=== PATIENT | female | born 1995 | race African-American/Black ===

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

== ENCOUNTER 2017-07-17 14:47 | Emergency (ER) | payer OTHER ==
[~2017-07-17] VITALS: Ht 154.9 cm; Wt 89.0 kg
[~2017-07-17 14:47] MED LIST changes: +ZOFR4TAB PO
[2017-07-17 14:48] VITALS: BP 138/77; PULSE 97; RESP 16; TEMP 99.2; O2SAT 98
== END 2017-07-17 15:40 | disposition left against medical advice (07) ==
LOC: NETRI 14:47
DX: J00 Acute nasopharyngitis [common cold] (principal); Z53.21 Procedure and treatment not carried out due to patient leaving prior to being seen by health care provider
CPT/HCPCS: 99281

== ENCOUNTER 2017-08-12 16:12 | Emergency (ER) | payer OTHER ==
[~2017-08-12] VITALS: Ht 157.5 cm; Wt 90.0 kg
[2017-08-12 16:14] VITALS: BP 133/77; PULSE 89; RESP 18; TEMP 98.1; O2SAT 99
[2017-08-13] MEDS ORDERED: METR-1 PO (06:38)
== END 2017-08-12 17:02 | disposition left against medical advice (07) ==
LOC: NED 16:12
DX: R10.9 Unspecified abdominal pain (principal); Z53.21 Procedure and treatment not carried out due to patient leaving prior to being seen by health care provider
CPT/HCPCS: 99281

== ENCOUNTER 2017-08-13 05:28 | Emergency (ER) | payer OTHER ==
[~2017-08-13] VITALS: Ht 157.5 cm; Wt 93.0 kg
[2017-08-13 05:29] VITALS: BP 123/77; PULSE 77; RESP 14; TEMP 98.4; O2SAT 100
--- NOTE | 2017-08-13 06:26 | PD ---
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 Patient states she has had a fair amount of blood and discharge from her vagina over the past few days, she is sexually active, she has never had a pelvic exam before. Denies any fevers abdominal pain nausea vomiting or diarrhea, states symptoms are gradually worsening, she has not noticed any swelling just the discharge. She relates it to being like an abscess because she has had abscesses drained before and states the discharge color and consistency is similar. PFSH Past Medical History Medical History: Denies Significant Hx Hx Anticoagulant Therapy: No Cardiovascular Problems: No Chemotherapy: No Cerebrovascular Accident: No Developmental Delay: No Diabetes: No Diminished Hearing: No Hiatal Hernia: Yes (SURGERY AT ) Respiratory: No Immunizations Current: Yes Tetanus Vaccination: < 5 Years Influenza Vaccination: No ?: Not LMP: 07/31/17 : 0 Past Surgical History Surgical History: No Previous Surgery Abdominal Surgery: Yes (HIATAL HERNIA REPAIR) Other Surgery: Yes (breast reduction) Social History Alcohol Use: No Tobacco Use: No Substance Use: No Allergies-Medications (Allergen,Severity, Reaction): Coded Allergies: No Known Allergies (Verified Allergy, Unknown, 08/13/17) Reported Meds & Prescriptions Reported Meds & Active Scripts Active Flagyl (Metronidazole) 500 Mg Tab 500 Mg PO BID 7 Days Review of Systems Except as stated in HPI: all other systems reviewed are Neg Physical Exam Narrative GENERAL: Well-developed well-nourished in no obvious distress SKIN: Focused skin assessment warm/dry. HEAD: Atraumatic. Normocephalic. EYES: Pupils equal and round. No scleral icterus. No injection or drainage. ENT: No nasal bleeding or discharge. Mucous membranes pink and moist. NECK: Trachea midline. No JVD. CARDIOVASCULAR: Regular rate and rhythm. No murmur appreciated. RESPIRATORY: No accessory muscle use. Clear to auscultation. Breath sounds equal bilaterally. GASTROINTESTINAL: Abdomen soft, non-tender, nondistended. Hepatic and splenic margins not palpable. GENITOURINARY: Exam performed with female nurse wind energy mechanic present at all times, significant mucopurulent discharge from the cervix, no cervical motion tenderness no bimanual tenderness. No lesions seen internally or externally appeared MUSCULOSKELETAL: No obvious deformities. No clubbing. No cyanosis. No edema. NEUROLOGICAL: Awake and alert. No obvious cranial nerve deficits. Motor grossly within normal limits. Normal speech. PSYCHIATRIC: Appropriate mood and affect; insight and judgment normal. Data Data Last Documented VS Vital Signs Date Time Temp Pulse Resp B/P (MAP) Pulse Ox O2 Delivery O2 Flow Rate FiO2 08/13/17 07:16 08/13/17 05:29 98.4 77 14 100 Room Air Orders Orders Ed Urine Pregnancytest Poc (08/13/17 05:37) Urinalysis - C+S If Indicated (08/13/17 05:37) Gc And Chlamydia Pcr (08/13/17 05:37) Wet Prep Profile (08/13/17 05:37) Ceftriaxone Inj (Rocephin Inj) (08/13/17 06:30) Azithromycin (Zithromax) (08/13/17 06:30) Metronidazole (Flagyl) (08/13/17 06:30) Ondansetron Odt (Zofran Odt) (08/13/17 06:30) Ed Discharge Order (08/13/17 06:26) Lidocaine Pf 1% Inj (Xylocaine-Mpf 1% In (08/13/17 07:00) Urine Culture (08/13/17 06:10) Labs Laboratory Tests Test 08/13/17 06:10 08/13/17 06:20 Urine Color YELLOW Urine Turbidity CLOUDY Urine pH 6.5 Urine Specific [place] 1.022 Urine Protein 100 mg/dL Urine Glucose (UA) NEG mg/dL Urine Ketones 10 mg/dL Urine Occult Blood MOD Urine Nitrite NEG Urine Bilirubin NEG Urine Urobilinogen LESS THAN 2.0 MG/DL Urine Leukocyte Esterase LARGE Urine RBC 57 /hpf Urine WBC /hpf Urine WBC Clumps MOD Urine Squamous Epithelial Cells 50 /hpf Urine Bacteria MOD /hpf Urine Mucus FEW /lpf Urine Trichomonas RARE Microscopic Urinalysis Comment CULTURE INDICATED Clue Cells (Wet Prep) NONE SEEN Vaginal Trichomonas (Wet Prep) PRESENT Vaginal Yeast (Wet Prep) NONE SEEN Chlamydia trachomatis DNA (PCR) NOT DETECTED Neisseria gonorrhoeae DNA (PCR) NOT DETECTED MDM Medical Decision Making Medical Screen Exam Complete: Yes Emergency Medical Condition: Yes Differential Diagnosis Cervicitis, PID, bacterial vaginitis per Narrative Course Patient room to the emergency department, unprotected sexual activity, copious discharge consistent with cervicitis, will be covered for gonorrhea chlamydia and trichomonas, will cover for bacterial vaginitis as well, discussed follow- up with the healthcare department for testing for hepatitis HIV and syphilis, discussed testing and treatment of partners, discussed barrier contraception. She is stable for discharge. Diagnosis Primary Impression: Cervicitis Additional Instructions: Follow-up for the health department for testing for HIV hepatitis and syphilis, recommend having your partners tested and treated, always use condoms. Med/Other Pt SpecificInfo: Prescription(s) given Scripts Metronidazole (Flagyl) 500 Mg Tab 500 MG PO BID for Infection for 7 Days, #14 TAB 0 Refills Prov: Gold Peterson MD 08/13/17 Disposition: 01 DISCHARGE HOME Condition: Stable Gold Peterson MD Aug 13, 2017 06:26
[2017-08-13] MEDS ORDERED: metroNIDAZOLE 500 MG TAB PO ONE (06:30)
[2017-08-13] MEDS ORDERED: cefTRIAXone 250 MG VIAL IM ONE (06:30)
[2017-08-13] MEDS ORDERED: ONDANSETRON ODT 4 MG TAB PO ONE (06:30)
[2017-08-13] MEDS ORDERED: AZITHROMYCIN 250 MG TAB PO ONE (06:30)
[2017-08-13] MEDS ORDERED: METR-1 PO (06:38)
[2017-08-13] MEDS ORDERED: LIDOCAINE HCL 1% 50 ML VIAL XX ONE (06:45)
[2017-08-13 06:48] LABS: BACTERIA, URINE MOD /hpf; BILIRUBIN, URINE NEG (NEG); BLOOD, URINE MOD (NEG); GLUCOSE,URINE NEG (NEG); KETONE, URINE 10 mg/dL (NEG); MUCUS URINE FEW /lpf (OCC); NITRITE,URINE NEG (NEG); PH, URINE 6.5 (5.0-8.5); SQUAMOUS EPITHELIAL CELL URINE 50 /hpf (0-5); TRICHOMONAS, URINE RARE; URINE COLOR YELLOW (YELLW/STRAW); URINE LEUKOCYTE ESTERASE LARGE (NEG); WHITE BLOOD CELL CLUMPS MOD
[2017-08-13] MEDS ORDERED: LIDOCAINE HCL 1% PF 5 ML AMPULE OTHER ONE (07:00)
== END 2017-08-13 07:17 | disposition home or self-care (01) ==
LOC: NEPE 05:28
DX: N72 Inflammatory disease of cervix uteri (principal); B96.20 Unspecified Escherichia coli [E. coli] as the cause of diseases classified elsewhere
CPT/HCPCS: 81001; 87077; 87086; 87186; 87210; 87491; 87591; 96372; 99284; J0696

== ENCOUNTER 2017-10-22 07:51 | Emergency (ER) | payer OTHER ==
[~2017-10-22] VITALS: Ht 157.5 cm; Wt 92.0 kg
[~2017-10-22 07:51] MED LIST changes: -BACT800T5 PO; +METR-1 PO; -METR0.7528 VAGINAL; -ZOFR4TAB PO
[2017-10-22 07:54] VITALS: PULSE 84; RESP 20; TEMP 99.1; O2SAT 99
[2017-10-22 08:10] VITALS: BP 125/71; PULSE 92; RESP 22; O2SAT 98
[2017-10-22] MEDS ORDERED: ACETAMINOPHEN 325 MG TAB PO ONE (08:15)
[2017-10-22] MEDS ORDERED: IBUPROFEN 600 MG TAB PO ONE (08:15)
[2017-10-22] MEDS ORDERED: AMOX875T PO (08:17)
[2017-10-22] MEDS ORDERED: FLUT1SPR5 EACH NARE (08:17)
--- NOTE | 2017-10-22 08:23 | PD ---
HPI Chief Complaint: Cold / Flu Symptoms Time Seen by Provider: 08:13 Travel History International Travel<30 days: No Contact w/Intl Traveler<30days: No Traveled to known affect area: No History of Present Illness HPI 22-year-old female presents emergency department with upper respiratory symptoms including headache, sinus congestion, postnasal drip, sore throat, ear pain, cough, and generalized malaise. Patient denies significant shortness of breath or wheezing. She has decreased appetite but no nausea or vomiting. No diarrhea. No abdominal pain. Headache pain is 8 out of 10. Patient has no known drug allergies. PFSH Past Medical History Hx Anticoagulant Therapy: No Cardiovascular Problems: No Chemotherapy: No Cerebrovascular Accident: No Developmental Delay: No Diabetes: No Diminished Hearing: No Hiatal Hernia: Yes (SURGERY AT ) Respiratory: No Immunizations Current: Yes ?: Not LMP: OCTOBER 20, 2017 : 0 Past Surgical History Abdominal Surgery: Yes (HIATAL HERNIA REPAIR) Other Surgery: Yes (breast reduction) Social History Alcohol Use: No Tobacco Use: No Substance Use: No Allergies-Medications (Allergen,Severity, Reaction): Coded Allergies: No Known Allergies (Verified Allergy, Unknown, 10/22/17) Reported Meds & Prescriptions Reported Meds & Active Scripts Active Flonase Nasal [place] (Fluticasone Nasal [place]) 50 Mcg/Act [place] 100 Mcg EACH NARE BID Amoxicillin 875 Mg Tab 875 Mg PO BID 10 Days Review of Systems Except as stated in HPI: all other systems reviewed are Neg General / Constitutional: Positive: Chills, No: Fever Eyes: No: Visual changes HENT: Positive: Headaches, Sore Throat, Rhinitis, Rhinorrhea, Congestion, Earache, No: Vertigo, Lightheadedness, Nosebleed, Neck Stiffness, Neck Pain, Masses, Gingival Bleeding, Dental Difficulties, Ear Discharge Cardiovascular: No: Chest Pain or Discomfort Respiratory: Positive: Cough, No: Shortness of Breath Gastrointestinal: Positive: Other, No: Nausea, Vomiting, Diarrhea, Abdominal Pain Genitourinary: No: Dysuria Musculoskeletal: No: Pain Skin: No Rash Neurologic: No: Weakness Psychiatric: No: Depression Endocrine: No: Polydipsia Hematologic/Lymphatic: No: Easy Bruising Physical Exam Narrative GENERAL: The patient appears ill but not septic SKIN: Warm and dry. Normal color. Normal turgor. HEAD: Atraumatic. Normocephalic. EYES: Pupils equal and round. No scleral icterus. No injection or drainage. ENT: No nasal bleeding or discharge. Mucous membranes pink and moist. Patient has moderate sinus tenderness in both frontal and maxillary sinuses. TMs are dull bilaterally with no injection. Posterior pharynx appears irritated with cobblestoning, mild erythema, and postnasal drip noted. Airways patent. Lymphadenopathy is minimal. NECK: Trachea midline. Supple nontender. CARDIOVASCULAR: Regular rate and rhythm. RESPIRATORY: No accessory muscle use. Clear to auscultation. Breath sounds equal bilaterally. GASTROINTESTINAL: Abdomen soft, non-tender, nondistended. Hepatic and splenic margins not palpable. MUSCULOSKELETAL: Extremities without clubbing, cyanosis, or edema. No obvious deformities. NEUROLOGICAL: Awake and alert. No obvious cranial nerve deficits. Motor grossly within normal limits. Five out of 5 muscle strength in the arms and legs. Normal speech. PSYCHIATRIC: Appropriate mood and affect; insight and judgment normal. Data Data Last Documented VS Vital Signs Date Time Temp Pulse Resp B/P (MAP) Pulse Ox O2 Delivery O2 Flow Rate FiO2 10/22/17 08:10 92 22 125/71 (89) 98 Room Air 10/22/17 07:54 99.1 Orders Orders Ibuprofen (Motrin) (10/22/17 08:15) Acetaminophen (Tylenol) (10/22/17 08:15) Amoxicillin (Trimox) (10/22/17 08:30) [facility] Medical Decision Making Medical Screen Exam Complete: Yes Emergency Medical Condition: Yes Differential Diagnosis Upper respiratory infection. Sinusitis. Postnasal drip. Narrative Course Patient is given ibuprofen 600 mg p.o. now as well as 650 mg acetaminophen p.o. now. Patient is given amoxicillin 875 mg p.o. now. Patient is continued on amoxicillin 875 twice daily 10 days. Patient is given Flonase nasal spray 2 sprays each nostril daily. Work note is given. Diagnosis Primary Impression: Acute sinusitis, unspecified Qualified Codes: J01.40 - Acute pansinusitis, unspecified Patient Instructions: General Instructions, Sinusitis (ED) Departure Forms: Work Release Enter return to work date: Oct 24, 2017 Additional Instructions: Patient is given ibuprofen 600 mg p.o. now as well as 650 mg acetaminophen p.o. now. Patient is given amoxicillin 875 mg p.o. now. Patient is continued on amoxicillin 875 twice daily 10 days. Patient is given Flonase nasal spray 2 sprays each nostril daily. Work note is given. Med/Other Pt SpecificInfo: Prescription(s) given Scripts Fluticasone Nasal [place] (Flonase Nasal [place]) 50 Mcg/Act [place] 100 MCG EACH NARE BID for Allergies, #1 BOTTLE 0 Refills Prov: Pavan Tierney MD 10/22/17 Amoxicillin (Amoxicillin) 875 Mg Tab 875 MG PO BID for Infection for 10 Days, #20 TAB 0 Refills Prov: Pavan Tierney MD 10/22/17 Disposition: 01 DISCHARGE HOME Condition: Stable Dennys Jj Oct 22, 2017 08:23
[2017-10-22] MEDS ORDERED: AMOXICILLIN 875 MG TAB PO ONE (08:30)
== END 2017-10-22 09:09 | disposition home or self-care (01) ==
LOC: NEPD 07:51
DX: J01.40 Acute pansinusitis, unspecified (principal); H92.09 Otalgia, unspecified ear; J02.9 Acute pharyngitis, unspecified; R51 Headache; Z88.0 Allergy status to penicillin
CPT/HCPCS: 99283

== ENCOUNTER 2017-12-16 21:10 | Emergency (ER) | payer SELFPAY ==
[~2017-12-16] VITALS: Ht 167.6 cm; Wt 81.0 kg
[~2017-12-16 21:10] MED LIST changes: +AMOX875T PO; +FLUT1SPR5 EACH NARE; -METR-1 PO
[2017-12-16 21:15] VITALS: BP 128/68; PULSE 79; RESP 16; TEMP 99.1; O2SAT 100
[2017-12-16] MEDS ORDERED: DICL75TA PO (22:14)
[2017-12-16] MEDS ORDERED: CLEO300C2 PO (22:14)
[2017-12-16] MEDS ORDERED: ACETAMINOPHEN/HYDROcodone 325 MG/5 MG TAB PO ONE (22:15)
[2017-12-16] MEDS ORDERED: CLINDAMYCIN 150 MG CAP PO ONE (22:15)
--- NOTE | 2017-12-16 22:21 | PD ---
HPI Chief Complaint: Lump, Cyst, Hernia Time Seen by Provider: 22:08 Travel History International Travel<30 days: No Contact w/Intl Traveler<30days: No Traveled to known affect area: No History of Present Illness HPI 22-year-old black female presents emergency department we will complains of a tender area of her buttocks which she has had in the past. The patient states that she had incision and drainage of a pilonidal cyst. No drainage. She denies any fever chills. No nausea vomiting. Symptoms have been present now for the past 2 days. PFSH Past Medical History Hx Anticoagulant Therapy: No Cardiovascular Problems: No Chemotherapy: No Cerebrovascular Accident: No Developmental Delay: No Diabetes: No Diminished Hearing: No Hiatal Hernia: Yes (SURGERY AT ) Respiratory: No Immunizations Current: Yes Tetanus Vaccination: Unknown Influenza Vaccination: No ?: Not LMP: 12/15/2017 : 0 Past Surgical History Abdominal Surgery: Yes (HIATAL HERNIA REPAIR) Other Surgery: Yes (breast reduction) Social History Alcohol Use: No Tobacco Use: No Substance Use: No Allergies-Medications (Allergen,Severity, Reaction): Coded Allergies: No Known Allergies (Verified Allergy, Unknown, 12/16/17) Reported Meds & Prescriptions Reported Meds & Active Scripts Active Diclofenac Sodium DR (Diclofenac Sodium) 75 Mg Tabdr 75 Mg PO BID Cleocin (Clindamycin HCl) 300 Mg Cap 300 Mg PO Q6H 7 Days Review of Systems General / Constitutional: No: Fever Eyes: No: Visual changes HENT: No: Headaches Cardiovascular: No: Chest Pain or Discomfort Respiratory: No: Shortness of Breath Gastrointestinal: No: Abdominal Pain Genitourinary: No: Dysuria Musculoskeletal: No: Pain Skin: Positive Lumps, No Rash Neurologic: No: Weakness Psychiatric: No: Depression Endocrine: No: Polydipsia Hematologic/Lymphatic: No: Easy Bruising Physical Exam Narrative GENERAL: This is a well-nourished, well-developed patient, in no apparent distress. The patient was examined in the presence of the nurse. SKIN: There is a1.5 x 1.5 cm area of induration in the gluteal cleft. There is no fluctuance or pointing. It is tender to touch. She has had prior incision and drainage in the same area. HEAD: Atraumatic. Normocephalic. EYES: PERRL, EOMI, no discharge or injection. No scleral icterus. EARS: Clear NOSE: Nasal turbinates appear normal. THROAT: Mucosa pink and moist. Airway patent. NECK: Trachea midline. supple, moves head freely. LUNGS: Clear to auscultation. CV: Regular in rhythm. ABDOMEN: Soft nontender. EXT: No clubbing cyanosis or edema. Data Data Last Documented VS Vital Signs Date Time Temp Pulse Resp B/P (MAP) Pulse Ox O2 Delivery O2 Flow Rate FiO2 12/16/17 21:15 99.1 79 16 128/68 (88) 100 Orders Orders Clindamycin (Cleocin) (12/16/17 22:15) Acetamin-Hydrocod 325-5 Mg ([place] 5-325 (12/16/17 22:15) Ed Discharge Order (12/16/17 22:16) MDM Medical Decision Making Medical Screen Exam Complete: Yes Emergency Medical Condition: Yes Medical Record Reviewed: Yes Differential Diagnosis MDM: High Differential diagnoses: Abscess, folliculitis, cellulitis, lymphangitis, abrasion, contact dermatitis Narrative Course Patient has an infected pilonidal cyst at this point incision and drainage is not indicated. Patient is advised to take your antibiotics and follow-up with surgery. She will be referred to [facility] for recheck. Diagnosis Primary Impression: Pilonidal cyst Patient Instructions: General Instructions Additional Instructions: Rest. Elevation. keep clean and dry. Warm compresses. Clindamycin and diclofenac. Follow-up with [facility] in 2-3 days. Follow-up with a surgeon for definitive care. Return to the ER for any problems. Med/Other Pt SpecificInfo: Prescription(s) given Scripts Diclofenac Sodium (Diclofenac Sodium DR) 75 Mg Tabdr 75 MG PO BID, #14 TAB 0 Refills Prov: Hans Jauregui MD 12/16/17 Clindamycin (Cleocin) 300 Mg Cap 300 MG PO Q6H for Infection for 7 Days, #28 CAP 0 Refills Prov: Hans Jauregui MD 12/16/17 Disposition: 01 DISCHARGE HOME Condition: Stable Miguel Barnhart Dec 16, 2017 22:21
== END 2017-12-16 22:36 | disposition home or self-care (01) ==
LOC: NEPD 21:10
DX: L05.91 Pilonidal cyst without abscess (principal)
CPT/HCPCS: 99283

== ENCOUNTER 2017-12-20 14:45 | Emergency (ER) | payer SELFPAY ==
[~2017-12-20] VITALS: Ht 157.5 cm; Wt 85.0 kg
[~2017-12-20 14:45] MED LIST changes: -AMOX875T PO; +CLEO300C2 PO; +DICL75TA PO; -FLUT1SPR5 EACH NARE
[2017-12-20 15:00] VITALS: BP 108/66; PULSE 88; RESP 16; TEMP 98.8; O2SAT 100
[2017-12-20] MEDS ORDERED: ACETAMINOPHEN/HYDROcodone 325 MG/5 MG TAB PO ONE (18:45)
--- NOTE | 2017-12-20 19:28 | PD ---
HPI Chief Complaint: Skin Problem Time Seen by Provider: 18:32 Travel History International Travel<30 days: No Contact w/Intl Traveler<30days: No Traveled to known affect area: No History of Present Illness HPI Patient is a 22 year old female who comes in complaining of a painful cyst to her buttocks. She says she had a cyst drained there in the past, but was not having any problems with it until 3-4 days ago. She says this is when it started hurting again. She came here and was given a course of antibiotics. She says that she has been taking the antibiotics as prescribed, but the pain seems to have become worse. She denies any fever or chills. She denies any leakage of fluid from the area. She has not taken anything for the pain. Severity is mild to moderate. PFSH Past Medical History Hx Anticoagulant Therapy: No Cardiovascular Problems: No Chemotherapy: No Cerebrovascular Accident: No Developmental Delay: No Diabetes: No Diminished Hearing: No Hiatal Hernia: Yes (SURGERY AT ) Respiratory: No Immunizations Current: Yes ?: Not : 0 Past Surgical History Abdominal Surgery: Yes (HIATAL HERNIA REPAIR) Other Surgery: Yes (breast reduction) Social History Alcohol Use: No Tobacco Use: No Substance Use: No Allergies-Medications (Allergen,Severity, Reaction): Coded Allergies: No Known Allergies (Verified Allergy, Unknown, 12/20/17) Reported Meds & Prescriptions Reported Meds & Active Scripts Active Diclofenac Sodium DR (Diclofenac Sodium) 75 Mg Tabdr 75 Mg PO BID Cleocin (Clindamycin HCl) 300 Mg Cap 300 Mg PO Q6H 7 Days Review of Systems Except as stated in HPI: all other systems reviewed are Neg General / Constitutional: No: Fever, Chills Eyes: No: Blurred Vision HENT: No: Headaches, Lightheadedness Cardiovascular: No: Chest Pain or Discomfort Respiratory: No: Shortness of Breath Gastrointestinal: No: Nausea, Vomiting, Abdominal Pain Skin: Positive Lesions, No Rash Neurologic: No: Weakness, Dizziness Physical Exam Narrative GENERAL: Awake and alert, in no acute distress. SKIN: Focused skin assessment warm/dry. Small cyst above left buttocks, with large area of induration. No erythema or warmth. No leakage of fluids. HEAD: Atraumatic. Normocephalic. EYES: Pupils equal and round. No scleral icterus. No injection or drainage. ENT: No nasal bleeding or discharge. Mucous membranes pink and moist. NECK: Trachea midline. No JVD. CARDIOVASCULAR: Regular rate and rhythm. No murmur appreciated. RESPIRATORY: No accessory muscle use. Clear to auscultation. Breath sounds equal bilaterally. MUSCULOSKELETAL: No obvious deformities. No clubbing. No cyanosis. No edema. NEUROLOGICAL: Awake and alert. No obvious cranial nerve deficits. Motor grossly within normal limits. Normal speech. PSYCHIATRIC: Appropriate mood and affect; insight and judgment normal. Data Data Last Documented VS Vital Signs Date Time Temp Pulse Resp B/P (MAP) Pulse Ox O2 Delivery O2 Flow Rate FiO2 12/20/17 15:00 98.8 88 16 108/66 (80) 100 Orders Orders Iv Access Insert/Monitor (12/20/17 18:37) Complete Blood Count With Diff (12/20/17 18:37) Comprehensive Metabolic Panel (12/20/17 18:37) Ct Pelvis W Iv Contrast(Rout) (12/20/17 ) Acetamin-Hydrocod 325-5 Mg ([place] 5-325 (12/20/17 18:45) Ed Urine Pregnancytest Poc (12/20/17 18:37) Iohexol 350 Inj (Omnipaque 350 Inj) (12/20/17 19:29) Labs Laboratory Tests Test 12/20/17 19:15 White Blood Count 10.7 TH/MM3 Red Blood Count 5.02 MIL/MM3 Hemoglobin 13.2 GM/DL Hematocrit 40.0 % Mean Corpuscular Volume 79.7 FL Mean Corpuscular Hemoglobin 26.3 PG Mean Corpuscular Hemoglobin Concent 33.0 % Red Cell Distribution Width 14.7 % Platelet Count 281 TH/MM3 Mean Platelet Volume 10.2 FL Neutrophils (%) (Auto) 57.9 % Lymphocytes (%) (Auto) 30.9 % Monocytes (%) (Auto) 8.3 % Eosinophils (%) (Auto) 2.6 % Basophils (%) (Auto) 0.3 % Neutrophils # (Auto) 6.2 TH/MM3 Lymphocytes # (Auto) 3.3 TH/MM3 Monocytes # (Auto) 0.9 TH/MM3 Eosinophils # (Auto) 0.3 TH/MM3 Basophils # (Auto) 0.0 TH/MM3 CBC Comment DIFF FINAL Differential Comment MDM Medical Decision Making Medical Screen Exam Complete: Yes Emergency Medical Condition: Yes Medical Record Reviewed: Yes Differential Diagnosis abscess vs cellulitis vs cyst Narrative Course Patient is a 22 year old female who comes in complaining of a painful cyst above her left buttocks. Exam shows a small area of fluctuance. IV established , labs sent. Labs show no acute abnormalities. CT shows an abscess. Last [address] 12/20/17 0000 Signed Impressions: CONCLUSION: Focal subcutaneous buttock abscess. Abscess drained by ASA Barnhart. Advised to continue her antibiotics. Advised to keep the area clean and dry. Advised to return to the ED as needed for any worsening symptoms. Diagnosis Primary Impression: Abscess Referrals: [facility] call for appointment Patient Instructions: Abscess (ED), General Instructions Additional Instructions: Continue your antibiotics. Keep the area clean and dry. Follow up with your doctor. Return to the ED as needed for any worsening symptoms. Disposition: 01 DISCHARGE HOME Condition: Stable Sharlene Rand MD Dec 20, 2017 19:28
[2017-12-20] MEDS ORDERED: IOHEXOL 350 MG/ML 10 ML VIAL (for RAD DIAG) IVCONTRAST ONE (19:29)
--- NOTE | 2017-12-20 19:46 | RADRPT ---
EXAM DATE: 12/20/2017 7:33 PM EDT AGE/SEX: 22 years / Female INDICATIONS: Buttock abscess. Possible fistula. CLINICAL DATA: This is the patient's initial encounter. Patient reports that signs and symptoms have been present for 1 week and indicates a pain score of 10/10. MEDICAL/SURGICAL HISTORY: Hiatal hernia. . RADIATION DOSE: 15.64 CTDI (mGy) COMPARISON: No prior exams available for comparison. TECHNIQUE: Multiple contiguous helical axial images were obtained through pelvis following bolus inf usion of 95 ml Omnipaque 350 (iohexol) nonionic water-soluble contrast as a single exam dose. Imag es were obtained using multiple row detector helical technique. . Using automated exposure control an d adjustment of the mA and/or kV according to patient size, radiation dose was kept as low as reasona keisha achievable to obtain optimal diagnostic quality images. FINDINGS: There are small benign-appearing lymph nodes in bilateral groin the largest measures 2.2 cm on the le ft.There is no evidence for free fluid, mass, or any significant pathological adenopathy. There are no signs of diverticulitis. There is a focal pocket of abscess in the patient's right buttock sligh tly off the midline measures 3.7 cm in size. CONCLUSION: Focal subcutaneous buttock abscess. Electronically signed by: Sanjuana Herman MD 12/20/2017 7:44 PM EDT
[2017-12-20 19:54] LABS: AUTOMATED NEUTROPHIL # 6.2 TH/MM3 (1.8-7.7); BASOPHIL % 0.3 % (0.0-2.0); EOSINOPHIL # 0.3 TH/MM3 (0-0.4); EOSINOPHIL % 2.6 % (0.0-4.0); HEMOGLOBIN 13.2 GM/DL (11.6-15.3); LYMPH % 30.9 % (9.0-44.0); LYMPHOCYTE # 3.3 TH/MM3 (1.0-4.8); MEAN CELL VOLUME 79.7 FL (80.0-100.0); MEAN CORPUSCULAR HEMOGLOBIN 26.3 PG (27.0-34.0); MEAN PLATELET VOLUME 10.2 FL (7.0-11.0); MONO % 8.3 % (0.0-8.0); MONOCYTE # 0.9 TH/MM3 (0-0.9); NEUT % 57.9 % (16.0-70.0); PLATELET COUNT 281 TH/MM3 (150-450); RED BLOOD COUNT 5.02 MIL/MM3 (4.00-5.30); RED CELL DISTRIBUTION WIDTH 14.7 % (11.6-17.2); WHITE BLOOD COUNT 10.7 TH/MM3 (4.0-11.0)
--- NOTE | 2017-12-20 20:25 | PD ---
Physical Exam Date Seen by Provider: Dec 20, 2017 Time Seen by Provider: 20:22 Narrative . Data Data Last Documented VS Vital Signs Date Time Temp Pulse Resp B/P (MAP) Pulse Ox O2 Delivery O2 Flow Rate FiO2 12/20/17 15:00 98.8 88 16 108/66 (80) 100 Orders Orders Iv Access Insert/Monitor (12/20/17 18:37) Complete Blood Count With Diff (12/20/17 18:37) Comprehensive Metabolic Panel (12/20/17 18:37) Ct Pelvis W Iv Contrast(Rout) (12/20/17 ) Acetamin-Hydrocod 325-5 Mg ([place] 5-325 (12/20/17 18:45) Ed Urine Pregnancytest Poc (12/20/17 18:37) Iohexol 350 Inj (Omnipaque 350 Inj) (12/20/17 19:29) Ed Discharge Order (12/20/17 20:21) Labs Laboratory Tests Test 12/20/17 19:15 White Blood Count 10.7 TH/MM3 Red Blood Count 5.02 MIL/MM3 Hemoglobin 13.2 GM/DL Hematocrit 40.0 % Mean Corpuscular Volume 79.7 FL Mean Corpuscular Hemoglobin 26.3 PG Mean Corpuscular Hemoglobin Concent 33.0 % Red Cell Distribution Width 14.7 % Platelet Count 281 TH/MM3 Mean Platelet Volume 10.2 FL Neutrophils (%) (Auto) 57.9 % Lymphocytes (%) (Auto) 30.9 % Monocytes (%) (Auto) 8.3 % Eosinophils (%) (Auto) 2.6 % Basophils (%) (Auto) 0.3 % Neutrophils # (Auto) 6.2 TH/MM3 Lymphocytes # (Auto) 3.3 TH/MM3 Monocytes # (Auto) 0.9 TH/MM3 Eosinophils # (Auto) 0.3 TH/MM3 Basophils # (Auto) 0.0 TH/MM3 CBC Comment DIFF FINAL Differential Comment MDM Medical Record Reviewed: Yes Supervised Visit with CHANDRA: Yes Differential Diagnosis . Narrative Course An incision and drainage has been performed. Procedures Procedure Narrative I&D abscess: After the risks and benefits were discussed the following procedure was performed. The skin is prepped and draped in the usual sterile fashion using Betadine. The abscess is anesthetized with 1% lidocaine with epinephrine. After adequate anesthesia, an 10 blade scalpel is used to make a 2 centimeter central incision. Perulant material is expressed. The wound is packed open using half- inch iodoform gauze. Dressings applied. The patient tolerated the procedure well. There was no complications. Follow-up instructions were given to the patient. Diagnosis Primary Impression: Abscess Referrals: [facility] call for appointment Patient Instructions: General Instructions, Abscess (ED) Additional Instruction: Continue your antibiotics. Keep the area clean and dry. Follow up with your doctor. Return to the ED as needed for any worsening symptoms. Rest. Elevation. keep clean and dry. remove the packing in 3 days. Daily wound care with soap, water and Neosporin. Medications as directed. Follow-up with a primary care doctor in one week. Follow-up with a colorectal surgeon for definitive revision of your pilonidal cyst. Return to the ER for any problems. Med/Other Pt SpecificInfo: Wound Care Disposition: 01 DISCHARGE HOME Condition: Stable Miguel Barnhart Dec 20, 2017 20:25
[2017-12-20 21:15] LABS: ALBUMIN 3.1 GM/DL (3.4-5.0); ALT (GPT) 13 U/L (9-42); AST (GOT) 9 U/L (16-38); BICARBONATE 24.1 MEQ/L (21.0-32.0); BLOOD UREA NITROGEN 6 MG/DL (7-18); CALCIUM 8.2 MG/DL (8.5-10.1); CHLORIDE 102 MEQ/L (98-107); CREATININE 0.71 MG/DL (0.50-1.00); GLOMERULAR FILTRATION RATE 127 ML/MIN (>89); GLUCOSE,RANDOM 79 MG/DL (74-106); SODIUM (NA) 135 MEQ/L (136-145)
[2017-12-20 21:18] LABS: ALKALINE PHOSPHATASE 110 U/L (45-117); TOTAL BILIRUBIN ADULT 0.2 MG/DL (0.2-1.0); TOTAL PROTEIN 7.4 GM/DL (6.4-8.2)
== END 2017-12-20 20:54 | disposition home or self-care (01) ==
LOC: NEPD 14:45
DX: L02.31 Cutaneous abscess of buttock (principal)
CPT/HCPCS: 10060; 72193; 80053; 84703; 85025; 99284; Q9967